=== PATIENT | male | born 1945 | race Caucasian/White ===

== ENCOUNTER → 2024-01-12 11:30 | Outpatient (REF) | payer MEDICARE, SELFPAY ==
[2024-01-12 12:07] LABS: INR 2.49; PT 27.2 Sec (11.4-14.6)
== END ==
LOC: REG 11:30
PROVIDERS: ATTENDING PHYSICIAN Internal Medicine Cardiovascular Disease
DX: Z79.01 Long term (current) use of anticoagulants (principal); I48.0 Paroxysmal atrial fibrillation
CPT/HCPCS: 36415; 85610

== ENCOUNTER → 2024-02-07 11:27 | Outpatient (REF) | payer MEDICARE, SELFPAY ==
[2024-02-07 12:33] LABS: INR 2.68; PT 28.4 Sec (11.4-14.6)
== END ==
LOC: REG 11:27
PROVIDERS: ATTENDING PHYSICIAN Internal Medicine Cardiovascular Disease; FAMILY PHYSICIAN Family Medicine
DX: Z79.01 Long term (current) use of anticoagulants (principal)
CPT/HCPCS: 36415; 85610

== ENCOUNTER → 2024-03-17 10:46 | Outpatient (REF) | payer MEDICARE, SELFPAY ==
[2024-03-17 11:32] LABS: INR 2.64; PT 28.1 Sec (11.4-14.6)
== END ==
LOC: REG 10:46
PROVIDERS: ATTENDING PHYSICIAN Internal Medicine Cardiovascular Disease; FAMILY PHYSICIAN Family Medicine
DX: I48.0 Paroxysmal atrial fibrillation (principal)
CPT/HCPCS: 36415; 85610

== ENCOUNTER → 2024-04-13 12:22 | Outpatient (REF) | payer MEDICARE, SELFPAY ==
[2024-04-13 13:40] LABS: INR 2.27; PT 25.3 Sec (11.4-14.6)
== END ==
LOC: REG 12:22
PROVIDERS: ATTENDING PHYSICIAN Internal Medicine Cardiovascular Disease
DX: I48.0 Paroxysmal atrial fibrillation (principal)
CPT/HCPCS: 36415; 85610

== ENCOUNTER → 2024-05-22 10:53 | Outpatient (REF) | payer MEDICARE, SELFPAY ==
[2024-05-22 11:52] LABS: INR 2.98; PT 30.9 Sec (11.4-14.6)
== END ==
LOC: REG 10:53
PROVIDERS: ATTENDING PHYSICIAN Internal Medicine Cardiovascular Disease
DX: I48.0 Paroxysmal atrial fibrillation (principal)
CPT/HCPCS: 36415; 85610

== ENCOUNTER → 2024-06-26 10:51 | Outpatient (REF) | payer MEDICARE, SELFPAY ==
[2024-06-26 12:30] LABS: INR 3.52; PT 35.3 Sec (11.4-14.6)
== END ==
LOC: REG 10:51
PROVIDERS: ATTENDING PHYSICIAN Internal Medicine Cardiovascular Disease; FAMILY PHYSICIAN Family Medicine
DX: I48.0 Paroxysmal atrial fibrillation (principal)
CPT/HCPCS: 36415; 85610

== ENCOUNTER → 2024-07-13 10:29 | Outpatient (REF) | payer MEDICARE, SELFPAY ==
[2024-07-13 11:09] LABS: INR 2.45; PT 26.9 Sec (11.4-14.6)
== END ==
LOC: REG 10:29
PROVIDERS: ATTENDING PHYSICIAN Internal Medicine Cardiovascular Disease; FAMILY PHYSICIAN Family Medicine
DX: I48.0 Paroxysmal atrial fibrillation (principal)
CPT/HCPCS: 36415; 85610

== ENCOUNTER → 2024-08-10 12:10 | Outpatient (REF) | payer MEDICARE, SELFPAY ==
[2024-08-10 15:12] LABS: INR 3.24; PT 33.5 Sec (11.4-14.6)
== END ==
LOC: REG 12:10
PROVIDERS: ATTENDING PHYSICIAN Internal Medicine Cardiovascular Disease; FAMILY PHYSICIAN Family Medicine
DX: I48.0 Paroxysmal atrial fibrillation (principal)
CPT/HCPCS: 36415; 85610

== ENCOUNTER → 2024-09-13 12:02 | Outpatient (REF) | payer MEDICARE, SELFPAY ==
[2024-09-13 12:55] LABS: INR 1.75; PT 20.6 Sec (11.4-14.6)
== END ==
LOC: REG 12:02
PROVIDERS: ATTENDING PHYSICIAN Internal Medicine Cardiovascular Disease; FAMILY PHYSICIAN Family Medicine
DX: I48.0 Paroxysmal atrial fibrillation (principal)
CPT/HCPCS: 36415; 85610

== ENCOUNTER → 2024-09-26 12:03 | Outpatient (REF) | payer MEDICARE, SELFPAY ==
[2024-09-26 13:07] LABS: INR 3.46; PT 34.8 Sec (11.4-14.6)
== END ==
LOC: REG 12:03
PROVIDERS: ATTENDING PHYSICIAN Internal Medicine Cardiovascular Disease; FAMILY PHYSICIAN Family Medicine
DX: Z79.01 Long term (current) use of anticoagulants (principal); I48.0 Paroxysmal atrial fibrillation
CPT/HCPCS: 36415; 85610

== ENCOUNTER → 2024-11-06 12:05 | Outpatient (REF) | payer MEDICARE, SELFPAY ==
[2024-11-06 13:01] LABS: INR 2.78; PT 29.3 Sec (11.4-14.6)
== END ==
LOC: REG 12:05
PROVIDERS: ATTENDING PHYSICIAN Internal Medicine Cardiovascular Disease; FAMILY PHYSICIAN Family Medicine
DX: Z79.01 Long term (current) use of anticoagulants (principal); I48.0 Paroxysmal atrial fibrillation
CPT/HCPCS: 36415; 85610

== ENCOUNTER → 2024-11-29 12:12 | Outpatient (REF) | payer MEDICARE, SELFPAY ==
[2024-11-29 13:19] LABS: INR 2.96; PT 31.2 Sec (11.4-14.6)
== END ==
LOC: REG 12:12
PROVIDERS: ATTENDING PHYSICIAN Internal Medicine Cardiovascular Disease; FAMILY PHYSICIAN Family Medicine
DX: Z79.01 Long term (current) use of anticoagulants (principal); I48.0 Paroxysmal atrial fibrillation
CPT/HCPCS: 36415; 85610

== ENCOUNTER → 2024-12-20 11:32 | Outpatient (REF) | payer MEDICARE, SELFPAY ==
[2024-12-20 12:16] LABS: INR 2.43; PT 26.9 Sec (11.4-14.6)
== END ==
LOC: REG 11:32
PROVIDERS: ATTENDING PHYSICIAN Internal Medicine Cardiovascular Disease; FAMILY PHYSICIAN Family Medicine
DX: Z79.01 Long term (current) use of anticoagulants (principal); I48.0 Paroxysmal atrial fibrillation
CPT/HCPCS: 36415; 85610

== ENCOUNTER → 2025-01-17 12:05 | Outpatient (REF) | payer MEDICARE, SELFPAY ==
[2025-01-17 22:57] LABS: INR 2.84; PT 30.2 Sec (11.4-14.6)
== END ==
LOC: REG 12:05
PROVIDERS: ATTENDING PHYSICIAN Internal Medicine Cardiovascular Disease; FAMILY PHYSICIAN Family Medicine
DX: Z79.01 Long term (current) use of anticoagulants (principal); I48.0 Paroxysmal atrial fibrillation
CPT/HCPCS: 36415; 85610

== ENCOUNTER → 2025-02-14 12:11 | Outpatient (REF) | payer MEDICARE, SELFPAY ==
[2025-02-14 14:08] LABS: INR 2.52; PT 27.6 Sec (11.4-14.6)
== END ==
LOC: REG 12:11
PROVIDERS: ATTENDING PHYSICIAN Internal Medicine Cardiovascular Disease; FAMILY PHYSICIAN Family Medicine
DX: Z79.01 Long term (current) use of anticoagulants (principal); I48.0 Paroxysmal atrial fibrillation
CPT/HCPCS: 36415; 85610

== ENCOUNTER → 2025-03-19 12:07 | Outpatient (REF) | payer MEDICARE, SELFPAY ==
[2025-03-19 13:53] LABS: INR 2.88; PT 30.1 Sec (11.4-14.6)
== END ==
LOC: REG 12:07
PROVIDERS: ATTENDING PHYSICIAN Internal Medicine Cardiovascular Disease; FAMILY PHYSICIAN Family Medicine
DX: Z79.01 Long term (current) use of anticoagulants (principal); I48.0 Paroxysmal atrial fibrillation
CPT/HCPCS: 36415; 85610

== ENCOUNTER → 2025-04-19 11:38 | Outpatient (REF) | payer MEDICARE, SELFPAY ==
[2025-04-19 12:23] LABS: INR 2.23; PT 25.1 Sec (11.4-14.6)
== END ==
LOC: REG 11:38
PROVIDERS: ATTENDING PHYSICIAN Internal Medicine Cardiovascular Disease; FAMILY PHYSICIAN Family Medicine
DX: Z79.01 Long term (current) use of anticoagulants (principal); I48.0 Paroxysmal atrial fibrillation
CPT/HCPCS: 36415; 85610

== ENCOUNTER → 2025-05-22 11:31 | Outpatient (REF) | payer MEDICARE, SELFPAY ==
[2025-05-22 12:38] LABS: INR 2.99; PT 30.9 Sec (11.4-14.6)
== END ==
LOC: REG 11:31
PROVIDERS: ATTENDING PHYSICIAN Internal Medicine Cardiovascular Disease; FAMILY PHYSICIAN Family Medicine
DX: I48.0 Paroxysmal atrial fibrillation (principal); Z79.01 Long term (current) use of anticoagulants
CPT/HCPCS: 36415; 85610

== ENCOUNTER → 2025-06-20 11:23 | Outpatient (REF) | payer MEDICARE, SELFPAY ==
[2025-06-20 12:49] LABS: INR 2.71; PT 29.1 Sec (11.4-14.6)
== END ==
LOC: REG 11:23
PROVIDERS: ATTENDING PHYSICIAN Internal Medicine Cardiovascular Disease; FAMILY PHYSICIAN Family Medicine
DX: Z79.01 Long term (current) use of anticoagulants (principal); I48.0 Paroxysmal atrial fibrillation
CPT/HCPCS: 36415; 85610

== ENCOUNTER → 2025-07-16 11:48 | Outpatient (REF) | payer MEDICARE, SELFPAY ==
[2025-07-16 12:40] LABS: INR 2.37; PT 26.0 Sec (11.4-14.6)
== END ==
LOC: REG 11:48
PROVIDERS: ATTENDING PHYSICIAN Internal Medicine Cardiovascular Disease; FAMILY PHYSICIAN Family Medicine
DX: Z79.01 Long term (current) use of anticoagulants (principal); I48.0 Paroxysmal atrial fibrillation
CPT/HCPCS: 36415; 85610

== ENCOUNTER → 2025-08-20 12:04 | Outpatient (REF) | payer MEDICARE, SELFPAY ==
[2025-08-20 12:45] LABS: INR 2.17; PT 24.3 Sec (11.4-14.6)
== END ==
LOC: REG 12:04
PROVIDERS: ATTENDING PHYSICIAN Internal Medicine Cardiovascular Disease; FAMILY PHYSICIAN Family Medicine
DX: Z79.01 Long term (current) use of anticoagulants (principal); I48.0 Paroxysmal atrial fibrillation
CPT/HCPCS: 36415; 85610

== ENCOUNTER → 2025-09-19 11:59 | Outpatient (REF) | payer MEDICARE, SELFPAY ==
[2025-09-19 13:25] LABS: INR 2.48; PT 27.2 Sec (11.4-14.6)
== END ==
LOC: REG 11:59
PROVIDERS: ATTENDING PHYSICIAN Internal Medicine Cardiovascular Disease; FAMILY PHYSICIAN Family Medicine
DX: Z79.01 Long term (current) use of anticoagulants (principal); I48.0 Paroxysmal atrial fibrillation
CPT/HCPCS: 36415; 85610

== ENCOUNTER → 2025-10-22 12:28 | Outpatient (REF) | payer MEDICARE, SELFPAY ==
[2025-10-22 13:29] LABS: INR 2.31; PT 25.6 Sec (11.4-14.6)
== END ==
LOC: REG 12:28
PROVIDERS: ATTENDING PHYSICIAN Internal Medicine Cardiovascular Disease; FAMILY PHYSICIAN Family Medicine
DX: Z79.01 Long term (current) use of anticoagulants (principal); I48.0 Paroxysmal atrial fibrillation
CPT/HCPCS: 36415; 85610

== ENCOUNTER → 2025-11-19 12:40 | Outpatient (REF) | payer MEDICARE, SELFPAY ==
[2025-11-19 13:43] LABS: INR 2.61; PT 28.2 Sec (11.4-14.6)
== END ==
LOC: REG 12:40
PROVIDERS: ATTENDING PHYSICIAN Internal Medicine Cardiovascular Disease; FAMILY PHYSICIAN Family Medicine
DX: Z79.01 Long term (current) use of anticoagulants (principal); I48.0 Paroxysmal atrial fibrillation
CPT/HCPCS: 36415; 85610